=== PATIENT | male | born 1990 | race Asian ===

== ENCOUNTER 2016-08-20 11:34 | Outpatient (RCR) | payer OTHER | END 2016-11-18 | LOC: WSOH | DX: G56.01 Carpal tunnel syndrome, right upper limb (principal); G56.02 Carpal tunnel syndrome, left upper limb; M65.341 Trigger finger, right ring finger; X50.3XXA Overexertion from repetitive movements, initial encounter; Y99.0 Civilian activity done for income or pay | CPT/HCPCS: 24091; A6549 ==

== ENCOUNTER → 2016-08-20 | Outpatient (REF) | LOC: WSOH 11:18 | DX: Z02.89 Encounter for other administrative examinations (principal) ==